=== PATIENT | male | born 1980 | race Caucasian/White ===

== ENCOUNTER 2017-02-23 05:59 | Emergency (ER) | payer MEDICAID, OTHER ==
[~2017-02-23] VITALS: Ht 165.1 cm; Wt 67.0 kg
[2017-02-23 06:06] VITALS: Ht 165.1 cm; Wt 67.0 kg
[2017-02-23] MEDS ORDERED: KETOROLAC 30 MG INJ IM STA (06:26)
--- NOTE | 2017-02-23 06:26 | ERD ---
ER Documentation Chief Complaint Date/Time DATE: 02/23/17 TIME: 06:20 Chief Complaint mid back pain x 2 days HPI 37-year-old male who presented emergency room for mid upper back pain that started 2 days ago. Stated that he was moving a heavy piece of wood when a brick that is on top of the wood fell on his mid upper back. Reports mid upper back pain on range of motion. Denies headache, loss of consciousness, dizziness, blurry vision, changes in vision, photophobia, facial pain, ear pain, throat pain, difficulty swallowing, neck pain, shoulder pain, chest pain, cough, hemoptysis, abdominal pain, back pain, loss of appetite, nausea, vomiting, hematochezia, diarrhea, constipation, urinary symptoms, bladder and bowel incontinences, extremity weakness, extremity tenderness, numbness or tingling sensation, difficulty walking, recent travel, recent exposure to illness, recent antibiotic use in the last 3 months, fever, chills. Allergy: No known drug allergies. PMH: Denies. Medications: Denies. Surgery: Denies. Family history: Denies. Primary Social History: Denies. Denies smoking, use of alcohol, use of illegal drugs. ROS All systems reviewed and are negative except as per history of present illness. Medications Home Meds No Active Prescriptions or Reported Meds Allergies Allergies: Coded Allergies: No Known Allergy (Unverified , 02/06/15) PMhx/Soc Medical and Surgical Hx: pt denies Medical Hx, pt denies Surgical Hx Hx Alcohol Use: Yes (occassional) Hx Substance Use: Yes (marijuana) Hx Tobacco Use: Yes Smoking Status: Current some day smoker Physical Exam Vitals Vital Signs Date Time Temp Pulse Resp B/P Pulse Ox O2 Delivery O2 Flow Rate FiO2 02/23/17 06:06 98.7 110 17 167/84 99 Physical Exam CONSTITUTIONAL: Well-appearing; well-nourished; in no apparent distress. HEAD: Normocephalic; atraumatic. EYES: Conjunctiva clear, sclera non-icteric, EOM intact. PERRLA. Ears: Hearing intact. EACs clear, TMs non-bulging, non-inflamed, translucent & mobile, ossicles normal appearance, No obstructions, no erythema, no discharges Nose: No obstructions. No polyps. No external lesions. Mucosa non-inflamed. No external lesions, septum and turbinates normal. No rhinorrhea. No discharges. Frontal sinus is non-tender to palpation. Maxillary sinus is non-tender to palpation. MOUTH: Moist mucous membranes, no lesion, no obstructions, no vesicles, no thrush, patent airway Throat: Uvula in midline. Right tonsil is +1 with no erythema, no exudate. Left tonsil is +1 with no erythema, no exudate. Tolerating secretions well. Good gag reflex. Patent airway. Neck: Supple, without lesions, bruits, or adenopathy. No mass. Thyroid non- enlarged and non-tender to palpation. CHEST: Symmetrical chest. Respirations even and not labored. No retractions noted. CARDIOVASCULAR: Normal S1, S2. RRR. No murmurs, gallops. RESPIRATORY: Normal chest excursion with respiration; breath sounds clear and equal bilaterally; no wheezes, rhonchi, or rales. Breathing even and unlabored. Speaking in clear, full, and complete sentences w/ ease. ABDOMEN: Normal bowel sounds normal. Soft, round, non-distended, non-guarding, no tenderness, no rebound, no organomegaly, no masses, no pulsating abdominal mass. No hernia. No peritoneal signs. : No CVA tenderness. BACK: Symmetrical shoulder. Spine is midline without deformity, tenderness. No evidence of trauma or deformity. PELVIS: Stable pelvis. No evidence of trauma or deformity. MUSCULOSKELETAL: Normal gait and station. No misalignment, asymmetry, crepitation, defects, masses, effusions, decreased range of motion, instability , atrophy or abnormal strength or tone in the head, neck, spine, ribs, pelvis or extremities except has mild tenderness to C7 and T1 with no obvious swelling/ deformity/discoloration. Has mild supraspinatus tenderness right upper and left upper. Reproducing mid back pain on spinal range of motion. Negative straight leg test bilaterally. No calf tenderness. NEUROVASCULAR: Distal pulses are present. Pedal pulse are present, equal, and normal. Capillary refills are < 2 seconds. NEUROLOGIC: Alert and oriented x4. Speaks full and clear sentences. Cranial Nerves II-XII normal. Sensation to pain, touch, and proprioception normal. Grossly unremarkable. No neurologic deficits. Romberg test is negative. PSYCHOLOGICAL: The patients mood and manner are appropriate. No hallucinations , delusions. Not SI. Not HI. Has the capacity to decide for self SKIN: Normal for age and ethnicity; warm; dry; good turgor; no apparent lesions or exudates. No rashes, hives, discoloration. Intact. Results 24 hrs Current Medications Medications (Trade) Dose Ordered Sig/Hanna Route PRN Reason Start Time Stop Time Status Last Admin Dose Admin Ketorolac Tromethamine (Toradol) 30 mg ONCE STAT IM 02/23/17 06:26 02/23/17 06:27 DC 02/23/17 06:30 Procedures/MDM Examination: Please see physical examination Disease process, medical treatment was explained to the patient and family member. They verbalized understanding and agreed with the diagnostic tests, medical treatment, and follow-up care. Radiology: X-ray cervical Impression: Unremarkable cervical spine study. X-ray thoracic spine Impression: 11 dextroscoliotic curve to the thoracic spine. Treatment: Toradol IM. Re-evaluation: Denies headache, blurred vision, dizziness, neck pain, shoulder pain, chest pain, back pain, abdominal pain. No nausea and vomiting. No neurovascular deficits. No neurological deficits. Consultation: None. Differential diagnosis: Fracture versus contusion versus sprain versus spinal stenosis Medical decision m[age]-year-old male who presented emergency room for mid upper back pain that started 2 days ago. Stated that he was moving a heavy piece of wood when a brick that is on top of the wood fell on his mid upper back. Reports mid upper back pain on range of motion. Patient's complaint, patient's history about his complaint, my physical findings, my diagnostic test results are consistent with my final diagnosis of back pain, muscle spasms. Medications prescribed are the following: Motrin. Flexeril. Patient and family member are made aware of the side effects and adverse reactions of the medications prescribed. Instructed on when to seek emergent and medical attention in case allergic/anaphylactic reactions or severe side effects and or adverse reactions to medications. Patient and family member verbalized understanding. Patient instructed Instructed to follow-up with his PCP in 24-48 hours. Instructed to Call 911 for chest pain, shortness of breath. Advised to come back here in ED as soon as possible for severity of symptoms which includes but not limited to: any new symptoms; shortness of breath/difficulty of breathing; cardiovascular changes; severe gastrointestinal symptoms; signs and symptoms of bleeding and or infection; signs of compartment syndrome/neurovascular changes; neurological changes/deficits. Patient and family member verbalized understanding. Upon discharge, patient is alert and oriented x 4, speaks full and clear sentences, denies pain, has no neurological deficits, has no neurovascular deficits, difficulty of breathing. Breathing even and unlabored. Lung sounds are clear to auscultation. Not in distress. Appears comfortable. Ambulatory with steady gait. Appears satisfied with care provided here in ED. Departure Diagnosis: Primary Impression: Back pain Additional Impression: Muscle spasm Condition: Good Additional Instructions: Patient instructed Instructed to follow-up with his PCP in 24-48 hours. Instructed to Call 911 for chest pain, shortness of breath. Advised to come back here in ED as soon as possible for severity of symptoms which includes but not limited to: any new symptoms; shortness of breath/difficulty of breathing; cardiovascular changes; severe gastrointestinal symptoms; signs and symptoms of bleeding and or infection; signs of compartment syndrome/neurovascular changes; neurological changes/deficits. Patient and family member verbalized understanding. ITALO WILLIS Feb 23, 2017 06:26
--- NOTE | 2017-02-23 08:44 | RADRPT ---
PROCEDURE: XR Thoracic Spine CLINICAL INDICATION: Back pain TECHNIQUE: 2 Views of the thoracic spine were submitted. COMPARISON: None FINDINGS: The osseous structures appear well mineralized and intact. No fracture or destructive process is ev ident. there is no significant spurring. There is an 11 degrees dextroscoliotic curve to the thoracic spine but no subluxation is evident. The disk spaces are adequately maintained. IMPRESSION: 11 degrees dextroscoliotic curve to the thoracic spine. Physician Ellis Date Time Electronically viewed and signed by Sneha Santos Physician on 02/23/2017 08:44 /
--- NOTE | 2017-02-23 08:45 | RADRPT ---
PROCEDURE: XR cervical spine CLINICAL INDICATION: Injury TECHNIQUE: 3 standard radiographs were obtained of the cervical spine. COMPARISON: Previous CT done 02/06/2015. The previous CT was unremarkable. FINDINGS: Alignment: is normal without subluxation. The atlantoaxial relationship appears normal Disk spaces: are well maintained Osseous structures : appear intact with no fracture or destructive process identified. there is no s ignificant spurring. Soft tissues: are unremarkable. IMPRESSION: Unremarkable cervical spine study Physician Ellis Date Time Electronically viewed and signed by Physician Ellis on 02/23/2017 08:45 /
[2017-02-23] MEDS ORDERED: CYCL-319 PO (08:59)
[2017-02-23] MEDS ORDERED: IBUP-1542 PO (08:59)
== END 2017-02-23 09:28 | disposition home or self-care (01) ==
LOC: FTE 05:59
DX: S29.9XXA Unspecified injury of thorax, initial encounter (principal); F17.210 Nicotine dependence, cigarettes, uncomplicated; W20.8XXA Other cause of strike by thrown, projected or falling object, initial encounter; Y92.9 Unspecified place or not applicable
CPT/HCPCS: 72040; 72072; 96372; J1885; Z7502